=== PATIENT | male | born 1960 | race African-American/Black ===

== ENCOUNTER 2016-08-08 16:57 | Emergency (ER) | payer MEDICARE, MEDICAID ==
[~2016-08-08] VITALS: Ht 162.6 cm; Wt 63.6 kg
[~2016-08-08 16:57] MED LIST: HYDR-4003 PO; PENI500T PO
[2016-08-08 17:16] VITALS: BP 123/81; PULSE 103; RESP 20; O2SAT 97
[2016-08-08] MEDS ORDERED: TRAZ-115 PO (17:23)
[2016-08-08] MEDS ORDERED: HYDR-656 PO (17:23)
[2016-08-08] MEDS ORDERED: CRB200T PO (17:23)
--- NOTE | 2016-08-08 19:49 | DRSVH ---
PROCEDURE: X-RAY CHEST, TWO VIEWS ([id number]) INDICATIONS: cough, shortness of breath TECHNIQUE: 2 views of the chest were acquired. COMPARISON: None. FINDINGS: Surgical changes and devices: None. Lungs and pleura: No pleural effusions or pneumothorax. Lungs are clear. Mediastinum: Mediastinal contours are normal. Heart size is normal. Bones and chest wall: No suspicious bony abnormalities. Soft tissues appear unremarkable. IMPRESSION: No acute cardiopulmonary findings. Dictated by: Ele Celis M.D. on 08/08/2016 at 19:47 Approved by: Ele Celis M.D. on 08/08/2016 at 19:47
--- NOTE | 2016-08-08 20:14 | ED.REPORT ---
HPI-General Illness Date of Service Aug 08, 2016 ED Provider: Thony Reeves MD A 56 year old male with a history of hypertension and heroin use presents to the ED with a productive cough onset 2-3 days ago. He also reports a subjective fever, generalized myalgias, weakness, and diaphoresis. The patient was seen three days ago in clinic for alcohol withdrawal and admits to drinking alcohol earlier today. Nursing Notes Stated Complaint: COLD SYMPTOMS Chief Complaint: FLU/Cold Symptoms Nursing Notes Reviewed: Yes Allergies: Coded Allergies: morphine (Verified Allergy, Unknown, rash, 05/12/16) Scheduled Carbamazepine (Carbamazepine) 200 Mg Tablet 200 MG PO TID Trazodone (Trazodone) 50 Mg Tablet 50-100 MG PO HS hydrOXYzine Hcl (HydrOXYzine Hcl) 25 Mg Tablet 25-50 MG PO TID Scheduled PRN Ibuprofen (Ibuprofen) 600 Mg Tablet 600 MG PO QID PRN PRN For Pain General Time Seen by MD: 20:13 Chief Complaint Cough Hx Obtained From: Patient Arrived By: Walk-in Sudden in Onset?: No Onset Occurred: 3 days ago Symptom Duration: Since onset Severity: Current: No pain currently Severity: Maximum: No pain Associated with: Reports: Diaphoresis, Fever, Weakness Pertinent Negative: Relieved by nothing Recent Healthcare: Recent doctor visit Past Medical History Past Medical History Hypertension Past Surgical History Carpal tunnel surgery Smoking History Unknown if Ever Smoker Social History Hx Heroin use Ambulatory Status Independent Review of Systems + productive cough Full Review of Systems Constitutional: Reports: Fever (Subjective), Weakness - generalized Musculoskeletal: Reports: Myalgia (Generalized) Skin: Reports Diaphoresis Complete sys rev & neg: except as marked. Physical Exam Vital Signs Vital Signs Date Time Temp Pulse Resp B/P Pulse Ox O2 Delivery O2 Flow Rate FiO2 08/08/16 20:53 36.3 92 18 122/85 97 Room Air 08/08/16 17:16 36.7 103 20 123/81 97 Room Air Initial VS: Reviewed Head / Eyes: Atraumatic, Normocephalic ENT: Conjunctiva normal, No scleral icterus Neurologic: Alert, Oriented Psychiatric: Mood/affect normal, Behavior normal, Normal thought content General/Constitutional: Awake, Alert Neck: Supple, No adenopathy Respiratory / Chest: Breath sounds NL, Breath sounds = bilat, No respiratory distress Cardiovascular: Heart rate NL, Regular rhythm, Heart sounds NL, No gallop, No murmurs, No rubs Color / Condition: Positive: Diaphoresis present Interpretation & Diagnostics Interpretation & Diagnostics: Negative for Influenza X-Ray Chest Interpretation Chest Xray Interpretation: IMPRESSION: No acute cardiopulmonary findings. Dictated by: Ele Celis M.D. on 08/08/2016 at 19:47 View: AP & lat Interpretation / Wet Read by: Interpret - Radiologist Re-Eval/Medical Decision Time of Eval: 20:20 Patient Status: Condition improved Re-Evaluation/Progress Note: Discussed with patient lab results, diagnosis, and plan for discharge. Follow-up and return to the ER instructions given. Patient agrees with plan for care and all questions were addressed. Counseled Regarding: Diagnosis, Lab results, Need for follow-up, When/why to return to ED Discharge & Departure Primary Impression: Viral respiratory illness Disposition: Home Discharge Condition All VS Reviewed: Yes Condition: Stable Patient Instructions: Fever in Adults (ED) Additional Instructions: Emergency Department evaluation included interview, examination influenza screen and chest x-ray. Influenza screen is negative chest x-ray does not show a pneumonia examination is reassuring. Rest and get adequate fluids. Use ibuprofen 600 mg every 6 hours as needed for fevers and aches. Do not use alcohol. Stay home until you are well and without a fever. Return to emergency department for increasing shortness of breath uncontrolled vomiting. Follow up with [facility], call for an appointment about one week Referrals: [facility] Scribe Attestation Portions of this note were transcribed by Taina Shirley. I, Dr. Reeves, personally performed the history, physical exam, and medical decision-making; I reviewed and confirmed the accuracy of the information in the transcribed note. Signed by: Camille Davis, 08/08/2016, 21:19 copies to: [facility] Thony Reeves MD Aug 08, 2016 20:14 TAINA SHIRLEY Aug 08, 2016 20:21
[2016-08-08] MEDS ORDERED: IBUP-1827 PO (20:28)
[2016-08-08 20:53] VITALS: BP 122/85; PULSE 92; RESP 18; O2SAT 97
== END 2016-08-08 20:54 | disposition home or self-care (01) ==
LOC: EDSEX → SED 16:57
DX: J06.9 Acute upper respiratory infection, unspecified (principal); I10 Essential (primary) hypertension; F10.20 Alcohol dependence, uncomplicated; Z87.898 Personal history of other specified conditions

== ENCOUNTER 2016-12-23 18:57 | Emergency (ER) | payer MEDICARE, MEDICAID ==
[~2016-12-23] VITALS: Ht 167.6 cm; Wt 75.0 kg
[~2016-12-23 18:57] MED LIST changes: +CRB200T PO; -HYDR-4003 PO; +HYDR-656 PO; +IBUP-1827 PO; -PENI500T PO; +TRAZ-115 PO
[2016-12-23 19:05] VITALS: BP 144/89; PULSE 114; RESP 16; O2SAT 96
--- NOTE | 2016-12-23 19:13 | ED.REPORT ---
HPI-Extremity Problem Lower Date of Service Dec 23, 2016 ED Provider: Thony Reeves Patient is a 56 year old male with a hx of HTN who presents to the ED s/p falling through a roof with his R leg up to his thigh yesterday. Today he presents with increased R knee pain and swelling. He is unable to bear weight on his R leg. He denies numbness, weakness, or any other symptoms. He does not take daily medications. This was a non-occupational injury. Nursing Notes Stated Complaint: RIGHT KNEE INJURY Chief Complaint: Extremity Trauma Nursing Notes Reviewed: Yes Allergies: Coded Allergies: morphine (Verified Allergy, Unknown, rash, 05/12/16) Scheduled Carbamazepine (Carbamazepine) 200 Mg Tablet 200 MG PO TID Trazodone (Trazodone) 50 Mg Tablet 50-100 MG PO HS hydrOXYzine Hcl (HydrOXYzine Hcl) 25 Mg Tablet 25-50 MG PO TID Scheduled PRN Ibuprofen (Ibuprofen) 600 Mg Tablet 600 MG PO QID PRN PRN For Pain Ibuprofen (Ibuprofen) 600 Mg Tablet 600 MG PO TID PRN PRN For Pain General Time Seen by MD: 19:13 Chief Complaint Knee injury right Hx Obtained From: Patient Arrived By: Walk-in Onset Occurred: Yesterday Symptom Duration: Since onset Past Medical History Past Medical History Hypertension Past Surgical History Carpal tunnel surgery bilat knees bilat shoulders Smoking History Unknown if Ever Smoker Social History Hx Heroin use Daily alcohol use Ambulatory Status Independent Review of Systems Musculoskeletal: Reports: Joint pain, Joint swelling Neurologic: Reports: Problem walking, Denies: Numbness, Weakness Complete sys rev & neg: except as marked. Physical Exam Initial Vital Signs Vital Signs (First) Date Time Temp Pulse Resp B/P Pulse Ox O2 Delivery O2 Flow Rate FiO2 12/23/16 19:05 37.1 114 16 144/89 96 Room Air Initial VS: Reviewed General/Constitutional: Well-developed, Well-nourished Head / Eyes: Atraumatic, Normocephalic Neck: Full range of motion Respiratory: No respiratory distress Cardiovascular: Intact distal pulses Abdomen / GI: Soft, Non-tender Skin: Warm, Dry Neurologic: Alert, Oriented, Nonfocal Psychiatric: Mood/affect normal, Behavior normal, Normal thought content Right Knee: Positive: Tenderness present... abrasion, swelling, and bruising anterior medial of R knee no palpable effusion able extend knee fully flexes to 100 degrees distal pulses intact no ligament laxity pain with valgus stress any movement elicits a great deal of grimacing Ankle / Foot: Atraumatic, Inspection NL Interpretation & Diagnostics X-Ray Interpretation Xray Interpretation: IMPRESSION: Mild medial compartment osteoarthritis, superior quadriceps tendon insertion calcific tendinitis. No definite acute disease. Dictated by: Jaron Son M.D. on 12/23/2016 at 19:55 Approved by: Jaron Son M.D. on 12/23/2016 at 19:56 Study Performed: 3 view X-Ray Ordered: Knee right Interpretation / Wet Read by: Interpret - Radiologist Re-Eval/Medical Decision Re-Evaluation/Progress : Time of Eval: 20:57 Re-Evaluation/Progress Note: Discussed plan for discharge. Patient understands and agrees with plan. All questions addressed at this time. Counseled Regarding: Diagnosis, Need for follow-up, When/why to return to ED Discharge & Departure Impression: Primary Impression: Right knee pain Chronicity: acute Qualified Code: M25.561 - Pain in right knee Disposition: Home Discharge Condition All VS Reviewed: Yes Condition: Stable Patient Instructions: Crutch Instructions (ED) Additional Instructions: Evaluation tonight included interview, examination and x-ray. No major injury to the right knee is identified. Using a knee immobilizer and crutches, when able to walk comfortably without crutches he may do so. Apply ice to the knee, remove after 15-20 minutes, keep ice wrapped in a towel, you can do this 4-5 times a day. Follow-up with orthopedics call to make an appointment, ibuprofen 600 mg 3-4 times a day take with food. May use hydrocodone one every 4-6 hours as needed for pain not relieved by ibuprofen. Return emergency Department for severe swelling or severe pain in leg. Referrals: [facility] (PCP) Fly Santos MD Scribe Attestation Portions of this note were transcribed by Eduin Gomez. I, Dr. Reeves personally performed the history, physical exam and medical decision-making; I reviewed and confirmed the accuracy of the information in the transcribed note. Signed by: Eduin Gomez 12/23/16, [id number] copies to: Fly Santos MD, Donald L MD Dec 23, 2016 19:13 EDUIN GOMEZ Dec 23, 2016 20:07
--- NOTE | 2016-12-23 19:58 | DRSVH ---
PROCEDURE: X-RAY RIGHT KNEE, THREE VIEWS ([id number]) INDICATIONS: inj TECHNIQUE: 3 views of the knee were acquired. COMPARISON: None. FINDINGS: Bones: No fractures or dislocations. No suspicious bony lesions. Mild medial compartment joint spa ce narrowing is present. On the lateral view there is a quadriceps tendon insertions spurring at the upper border of the patella. Soft tissues: No joint effusion. No suspicious soft tissue calcifications. IMPRESSION: Mild medial compartment osteoarthritis, superior quadriceps tendon insertion calcific te ndinitis. No definite acute disease. Dictated by: Jaron Son M.D. on 12/23/2016 at 19:55 Approved by: Jaron Son M.D. on 12/23/2016 at 19:56
[2016-12-23] MEDS ORDERED: _HYDROcodone/APAP 5-325 mg Tablet PO PRN (21:00)
[2016-12-23 21:16] VITALS: BP 120/81; PULSE 83; RESP 16; O2SAT 98
[2016-12-23] MEDS ORDERED: IBUP-1827 PO (21:18)
== END 2016-12-23 21:57 | disposition home or self-care (01) ==
LOC: SED 18:57 → EDSEX 18:57 → SED 21:57
DX: S80.211A Abrasion, right knee, initial encounter (principal); W13.2XXA Fall from, out of or through roof, initial encounter; Y93.89 Activity, other specified; Y92.89 Other specified places as the place of occurrence of the external cause; Y99.8 Other external cause status; I10 Essential (primary) hypertension; Z88.5 Allergy status to narcotic agent

== ENCOUNTER 2017-01-31 20:20 | Emergency (ER) | payer MEDICARE, MEDICAID ==
[~2017-01-31] VITALS: Ht 162.6 cm; Wt 68.2 kg
[2017-01-31 20:21] VITALS: BP 146/95; PULSE 95; RESP 20; O2SAT 98
--- NOTE | 2017-01-31 22:45 | ED.REPORT ---
HPI-General Illness Date of Service Jan 31, 2017 ED Provider: Pedro Che DO Pt is a 56 year old male with a history of HTN and alcohol withdrawal seizures who presents to the ED for a medical evaluation before going into detox. 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 He last used 17 :00 today, and has been using for 5 years. The pt states that [facility] and they wanted to him to present to the ED first for a medical evaluation. Nursing Notes Stated Complaint: DETOX Chief Complaint: Substance Abuse Nursing Notes Reviewed: Yes Allergies: Coded Allergies: morphine (Verified Allergy, Unknown, rash, 05/12/16) Scheduled Carbamazepine (Carbamazepine) 200 Mg Tablet 200 MG PO TID Trazodone (Trazodone) 50 Mg Tablet 50-100 MG PO HS hydrOXYzine Hcl (HydrOXYzine Hcl) 25 Mg Tablet 25-50 MG PO TID Scheduled PRN Ibuprofen (Ibuprofen) 600 Mg Tablet 600 MG PO QID PRN PRN For Pain Ibuprofen (Ibuprofen) 600 Mg Tablet 600 MG PO TID PRN PRN For Pain General Time Seen by MD: 22:45 Chief Complaint Other (Detox) Hx Obtained From: Patient Arrived By: Walk-in Sudden in Onset?: No Onset Occurred: Just prior to arrival Symptom Duration: Since onset Severity: Current: No pain currently Severity: Maximum: No pain Recent Healthcare: No recent doctor visit, No recent hospitalization Similar Sx Previous: No Past Medical History Past Medical History Borderline DM Reports: Hypertension Past Surgical History Carpal tunnel surgery bilat knees bilat shoulders Smoking History Unknown if Ever Smoker Social History Hx Heroin use Alcohol Use: >5 per day Drug Use: Meth Ambulatory Status Independent Review of Systems Asymptomatic Full Review of Systems Constitutional: Denies: Fever Respiratory: Denies: Non-productive cough, Shortness of breath Complete sys rev & neg: except as marked. Physical Exam Vital Signs Vital Signs Date Time Temp Pulse Resp B/P Pulse Ox O2 Delivery O2 Flow Rate FiO2 01/31/17 20:21 36.9 95 20 146/95 98 Room Air Initial VS: Reviewed Head / Eyes: Atraumatic, Normocephalic Neck: Supple, Full range of motion Respiratory: Breath sounds normal, Clear to auscultation, No respiratory distress Cardiovascular: Regular rate & rhythm, Heart sounds normal, Intact distal pulses Abdomen / GI: Soft, Non-tender Extremities: Vascular intact, Neuro intact Skin: Warm, Dry, No cyanosis Neurologic: Alert, Oriented, Nonfocal Psychiatric: Mood/affect normal, Behavior normal General/Constitutional: Awake, Alert, Cooperative Mildly pressured speech. Interpretation & Diagnostics Lab Results Interpretation Result Diagram: 01/31/17 2333 01/31/17 2333 Test 01/31/17 23:33 01/31/17 23:37 01/31/17 23:44 White Blood Count 7.7th/mm3 (3.8-10.1) Red Blood Count 4.96mil/mm3 (4.40-5.80) Hemoglobin 13.6g/dL (13.8-17.2) Hematocrit 40.1% (41.0-50.0) Mean Corpuscular Volume 80.8fL (81-100) Mean Corpuscular Hemoglobin 27.4pg (27.0-35.0) Mean Corpuscular Hemoglobin Concent 33.9% (32.0-37.0) Red Cell Distribution Width 13.2% (12.3-15.4) Platelet Count 276bil/L (150-400) Neutrophils (%) (Auto) 56.5% (40-74) Lymphocytes (%) (Auto) 29.3% (14-46) Monocytes (%) (Auto) 9.6% (4-12) Eosinophils (%) (Auto) 4.0% (0-5) Basophils (%) (Auto) 0.5% (0-3) Sodium Level 140mEq/L (134-144) Potassium Level 4.8mEq/L (3.5-5.2) Chloride Level 100mEq/L (97-108) Carbon Dioxide Level 27mmol/L (18-29) Blood Urea Nitrogen 12mg/dL (6-24) Creatinine 0.96mg/dL (0.76-1.27) Estimat Glomerular Filtration Rate 86mL/min (>59) Glucose Level 95mg/dL (60-99) Calcium Level 9.7mg/dL (8.5-10.1) Total Bilirubin 0.3mg/dL (0.0-1.2) Aspartate Amino Transf (AST/SGOT) 30U/L (0-50) Alanine Aminotransferase (ALT/SGPT) 20U/L (0-44) Alkaline Phosphatase 68U/L (25-150) Total Protein 8.0g/dL (6.4-8.4) Albumin 4.8g/dL (3.4-5.0) Alcohols < 10mg/dL (0-10) Hold Cordero Top Tube Received (Received) Hold Urine Received (Received) Re-Eval/Medical Decision Med Decision/Clinical Course No signs of active DTs. No tremor. No hallucinations. [id number] anxiety which was treated with lorazepam. Laboratory work reassuring. No suicidal ideations. Cleared for sobering services treatment. Lorazepam taper provided. Recommend close outpatient follow-up. Routine sedative warnings given. Source of Hx: Old records Time of Eval: 01:27 Re-Evaluation/Progress Note: Pt rechecked. Informed pt of plan for discharge. Pt understands and agrees with plan for discharge. F/U instructions and RTER warnings given. All questions addressed. Counseled Regarding: Diagnosis, Lab results, Need for follow-up, When/why to return to ED Discharge & Departure Primary Impression: Substance abuse Additional Impression: Alcohol abuse Disposition: Home Discharge Condition All VS Reviewed: Yes Condition: Stable Patient Instructions: Abuse of Alcohol (ED) Additional Instructions: Proceed to sobering services. Do not abuse methamphetamine or alcohol. Complete the Ativan as instructed and provided. Do not drive or consume acetaminophen or sedatives while taking the medication. Attend alcohol anonymous once you are discharged from sobering services. Follow up with your primary provider after you are discharged from sobering services. Return to the Emergency Department for any new or worsening symptoms. [facility] Camille Attestation Portions of this note were transcribed by Janell Antunez. I, Dr. Che personally performed the history, physical exam and medical decision-making; I reviewed and confirmed the accuracy of the information in the transcribed note. Signed by : Camille Plata, 01/31/17 and 23:40. copies to: [facility] Todd P DO Jan 31, 2017 22:45 Janell Kirkpatrick Jan 31, 2017 23:20
[2017-01-31] MEDS ORDERED: _LORazepam 2 MG Tablet PO SCH (23:20)
[2017-01-31] MEDS ORDERED: LORazepam 2 mg Tablet PO ONE (23:20)
[2017-01-31 23:50] LABS: BASOPHILS % (AUTO) 0.5 % (0-3); MONOCYTES % (AUTO) 9.6 % (4-12); Mean Corpuscular Hemoglobin 27.4 pg (27.0-35.0); Mean Corpuscular Volume 80.8 fL (81-100); NEUTROPHILS % (AUTO) 56.5 % (40-74); Platelet Count 276 bil/L (150-400)
[2017-02-01] MEDS ORDERED: _LORazepam 2 MG Tablet PO SCH (00:30)
[2017-02-01] MEDS ORDERED: LORazepam 2 mg Tablet PO ONE (00:30)
== END 2017-02-01 02:17 | disposition home or self-care (01) ==
LOC: SED 20:20
DX: F15.129 Other stimulant abuse with intoxication, unspecified (principal); F10.10 Alcohol abuse, uncomplicated; I10 Essential (primary) hypertension; R73.03 Prediabetes; Z88.5 Allergy status to narcotic agent
CPT/HCPCS: 36415; 80053; 81002; 82075; 85025; 99284; G0480

== ENCOUNTER 2017-02-20 17:51 | Emergency (ER) | payer MEDICARE, MEDICAID ==
[~2017-02-20] VITALS: Ht 162.6 cm; Wt 68.2 kg
[2017-02-20 17:57] VITALS: BP 126/87; PULSE 97; RESP 12; O2SAT 98
[2017-02-20] MEDS ORDERED: Ondansetron 2 mg/mL 2 mL Inj IVPUSH ONE (18:50)
--- NOTE | 2017-02-20 18:51 | ED.REPORT ---
HPI-Abd Pain M 40 and Over Date of Service Feb 20, 2017 ED Provider: Syed Dudley MD The pt is a 56 y/o male w/ a hx of HTN and pancreatitis presenting to the ED complaining of abdominal pain onset 2 days ago. The pain is in the upper abdomen , radiates to the back, is described as sharp and achy and keeps him awake during the night, eating and drinking make it worse, staying still makes it better, and he drank alcohol the night before it started. The pt also reports dizziness, and vomiting everything he eats and drinks w/ the vomit being a dark brown color. Denies fever, dysuria, or abdominal surgery. The pt was hospitalized for pancreatitis 4 years ago caused by alcohol and a poor diet and his symptoms were similar to what he has been experiencing today. The pt admits to drinking alcohol daily. He was last seen here in the ED 3 weeks ago for substance abuse. Nursing Notes Stated Complaint: VOMITING,STOMACH HURTS,POSS PANCREAS Chief Complaint: Male Abdominal Pain Nursing Notes Reviewed: Yes ([employer], [employer] not reconciled) Allergies: Coded Allergies: morphine (Verified Allergy, Unknown, rash, 05/12/16) Scheduled Carbamazepine (Carbamazepine) 200 Mg Tablet 200 MG PO TID Trazodone (Trazodone) 50 Mg Tablet 50-100 MG PO HS hydrOXYzine Hcl (HydrOXYzine Hcl) 25 Mg Tablet 25-50 MG PO TID Scheduled PRN Ibuprofen (Ibuprofen) 600 Mg Tablet 600 MG PO QID PRN PRN For Pain Ibuprofen (Ibuprofen) 600 Mg Tablet 600 MG PO TID PRN PRN For Pain Ondansetron ODT (Ondansetron ODT) 8 Mg Tab.rapdis 8 MG PO Q4H PRN PRN For Nausea oxyCODONE-Acetaminophen 5-325 mg (oxyCODONE-Acetaminophen 5-325 mg) 1 Each Tablet 1-2 TAB PO Q6H PRN PRN For Pain General Time Seen by MD: 18:50 Chief Complaint Abdominal pain Hx Obtained From: Patient Sudden in Onset?: Yes Onset Occurred: 2 days ago Context of Onset: New medication Recent Healthcare: No recent hospitalization, Recent doctor visit Similar Sx Previous: Yes Past Medical History Past Medical History Borderline DM Pancreatitis Reports: Hypertension Past Surgical History Carpal tunnel surgery bilat knees bilat shoulders Smoking History Unknown if Ever Smoker Social History Hx Heroin use Alcohol Use: >5 per day Drug Use: Meth Ambulatory Status Independent Review of Systems Constitutional: Denies: Fever GI: Reports: Abdominal pain, Nausea, Vomiting Male: Denies Dysuria Complete sys rev & neg: except as marked. Neurologic: Reports: Dizziness Physical Exam Initial Vital Signs Vital Signs (First) Date Time Temp Pulse Resp B/P Pulse Ox O2 Delivery O2 Flow Rate FiO2 02/20/17 17:57 36.9 97 12 126/87 98 Room Air Initial VS: Reviewed, Vital signs normal Head / Eyes: Atraumatic, Normocephalic, PERRL ENT: Mucous membranes moist, Conjunctiva normal, No scleral icterus Neck: Supple, Non-tender, Full range of motion Extremities: Vascular intact, Neuro intact, No swelling, No tenderness Skin: Warm, Dry, No cyanosis Neurologic: Alert, Oriented, Nonfocal Psychiatric: Mood/affect normal, Behavior normal, Normal thought content General/Constitutional: Awake, Alert, Not toxic appearing Appearance / Presentation: Positive: Uncomfortable No signs of intoxication or withdrawal Respiratory / Chest: Atraumatic, Breath sounds NL, Breath sounds = bilat Cardiovascular: Heart rate NL, Regular rhythm, Heart sounds NL Abdomen: Soft, No guarding, No rebound Tenderness/Guarding/Rebound: Positive: Tender epigastric (Trace) Back: Atraumatic, Inspection NL, Full range of motion Interpretation & Diagnostics Lab Results Interpretation Result Diagram: 02/20/17 1904 02/20/17 1904 Test 02/20/17 19:04 02/20/17 19:11 White Blood Count 7.3th/mm3 (3.8-10.1) Red Blood Count 5.19mil/mm3 (4.40-5.80) Hemoglobin 14.8g/dL (13.8-17.2) Hematocrit 41.8% (41.0-50.0) Mean Corpuscular Volume 80.5fL (81-100) Mean Corpuscular Hemoglobin 27.4pg (27.0-35.0) Mean Corpuscular Hemoglobin Concent 34.0% (32.0-37.0) Red Cell Distribution Width 13.3% (12.3-15.4) Platelet Count 253bil/L (150-400) Neutrophils (%) (Auto) 67.2% (40-74) Lymphocytes (%) (Auto) 22.1% (14-46) Monocytes (%) (Auto) 7.4% (4-12) Eosinophils (%) (Auto) 2.5% (0-5) Basophils (%) (Auto) 0.4% (0-3) Sodium Level 137mEq/L (134-144) Potassium Level 3.9mEq/L (3.5-5.2) Chloride Level 98mEq/L (97-108) Carbon Dioxide Level 22mmol/L (18-29) Blood Urea Nitrogen 11mg/dL (6-24) Creatinine 1.12mg/dL (0.76-1.27) Estimat Glomerular Filtration Rate 72mL/min (>59) Glucose Level 103mg/dL (60-99) Calcium Level 9.3mg/dL (8.5-10.1) Magnesium Level 2.3mg/dL (1.6-2.6) Total Bilirubin 0.3mg/dL (0.0-1.2) Aspartate Amino Transf (AST/SGOT) 27U/L (0-50) Alanine Aminotransferase (ALT/SGPT) 39U/L (0-44) Alkaline Phosphatase 65U/L (25-150) Troponin T < 0.010ug/L (0.0-0.011) Total Protein 8.0g/dL (6.4-8.4) Albumin 4.6g/dL (3.4-5.0) Lipase 28U/L (13-60) Alcohols < 10mg/dL (0-10) Urine Color Yellow (YELLOW) Urine Appearance Clear (CLEAR,HAZY) Urine pH 5.0 (5.0-8.0) Urine Specific [place] 1.025 (1.003-1.035) Urine Protein Negativemg/dL (NEG,TRACE) Urine Glucose (UA) Negativemg/dL (NEGATIVE) Urine Ketones Negativemg/dL (NEGATIVE) Urine Occult Blood Trace (NEGATIVE) Urine Nitrite Negative (NEGATIVE) Urine Bilirubin Negative (NEGATIVE) Urine Urobilinogen Normalmg/dL (NORMAL) Urine Leukocyte Esterase Negative (NEGATIVE) Urine RBC 0-2/hpf (0-2) Urine WBC 0-5/hpf (0-5) Urine Epithelial Cells Occasional/hpf (NONE-MOD) Urine Crystals None seen (NONE SEEN) Urine Bacteria Few/hpf (NONE-FEW) Urine Hyaline Casts None/lpf (NONE) Urine Granular Casts None seen (NONE SEEN) Urine Waxy Casts None seen (NONE SEEN) Urine Red Blood Cell Casts None seen (NONE SEEN) Urine White Blood Cell Casts None seen (NONE SEEN) Urine Mucus Present (None Seen) Urine Trichomonas None seen (NONE SEEN) Urine Yeast None (NONE SEEN) Urinalysis Comment None Urine Culture Reflexed Not indicated Lab Results Interpretation: CBC normal CMP Normal ETOH negative Lipase normal ECG Interpretation ECG Interpretation: Rate 91 NSR Time: 19:59 Interpreted by: ED physician CT Abd / Pelvis Interpretation IMPRESSION: Chronic pancreatic changes consistent with pancreatitis. Acute changes are not preciated but this would not rule out an acute pancreatitis. No other abnormality is appreciated on the CT scan of the abdomen and pelvis with contrast. Dictated by: José Manuel Hendricks M.D. on 02/20/2017 at 20:36 Approved by: José Manuel Hendricks M.D. on 02/20/2017 at 20:42 Study type: Abdom CT oral contrast Interpretation / Wet Read by: Interpret - Radiologist Re-Eval/Medical Decision Med Decision/Clinical Course This is a 56-year-old male with a history prior alcohol abuse developed pancreatitis as a result, has been sober for a number years. He recently is the father of twins, and reports had some alcohol a few days ago and a small amount and has now developed epigastric pain radiating the back that is and what he had with pancreatitis in the past. He has had some nausea, persistence of pain came to the department. He has normal vitals, is mildly uncomfortable, but has a benign clinical exam. Labs are normal. Given his history CT imaging was obtained and reveals chronic inflammatory changes of pancreatitis, but no definitive acute, although his history and exam strongly argue for us an acute flare. The patient is treated with some Dilaudid and Zofran is improved, and I think managed as an outpatient. He discharged some ondansetron and Percocet. Routine precautions reviewed. Precautions reviewed. Patient's discharged in improved condition Source of Hx: Old records Time of Eval: 21:33 Re-Evaluation/Progress Note: Pt rechecked. Informed pt of plan for treatment. Pt understands and agrees with plan for treatment. F/U instructions and RTER warnings given. All questions addressed. Differential Diagnosis: Positive: Acute abdominal pain, Negative: Aortic dissection, C. diff colitis, Esophageal rupture, Gun shot wound abdomen, Stab wound abdomen, Unstable angina, Urinary obstruction Counseled Regarding: Diagnosis, Lab results, Need for follow-up, When/why to return to ED Discharge & Departure Primary Impression: Pancreatitis Chronicity: chronic Pancreatitis type: alcohol induced Qualified Code: K86.0 - Alcohol-induced chronic pancreatitis Additional Impression: Epigastric pain Disposition: Home Vital Signs - All Vital Signs Date Time Temp Pulse Resp B/P Pulse Ox O2 Delivery O2 Flow Rate FiO2 02/20/17 22:36 37.0 78 14 128/66 98 Room Air 02/20/17 20:47 77 14 144/84 98 Room Air 02/20/17 17:57 36.9 97 12 126/87 98 Room Air )( All Prior VS Reviewed: Yes Condition: Stable Additional Instructions: 1. Your symptoms and exam suggest you may have a mild exacerbation of chronic pancreatitis - likely caused by alcohol. 2. Your blood tests and CT Scan did not reveal acute pancreatitis - but there are findings of chronic pancreatitis and the small amount of alcohol you had recently can precipitate this pain. 3. Symptoms are expected to resolve with time over the next several days. 4. Stay away from any further alcohol. (Even small amounts can cause an exacerbation). 5. Light diet as tolerated. 6. Take oxycodone/APAP 5mg 1-2 tabs up to three times a day for pain. NOTE: This medication contains a narcotic and causes drowsiness. NO driving for at least 4 hours after taking. 7. If needed for nausea take ondansetron 8mg - let dissolve underneath tongue - up to every 4 hours as needed for nausea. 8. Return to the ED if new, worsening, or uncontrolled symptoms. Referrals: [facility] (PCP) Scribe Attestation Portions of this note were transcribed by Roland Wilson. I, Dr. Dudley personally performed the history, physical exam and medical decision-making; I reviewed and confirmed the accuracy of the information in the transcribed note. copies to: [facility] Matthew F MD Feb 20, 2017 18:51 Roland Wilson Feb 20, 2017 20:40
[2017-02-20] MEDS: HYDROmorphone 0.5 mg/0.5 mL iSecure Syringe IVPUSH PRN ×2 (18:59→19:28)
[2017-02-20] MEDS ORDERED: 0.9% Sodium Chloride 1,000 ML IV ONE (19:15)
[2017-02-20 19:16] LABS: Mean Corpuscular Hemoglobin 27.4 pg (27.0-35.0); Mean Corpuscular Volume 80.5 fL (81-100)
[2017-02-20 19:17] LABS: BASOPHILS % (AUTO) 0.4 % (0-3); EOSINOPHILS % (AUTO) 2.5 % (0-5); MONOCYTES % (AUTO) 7.4 % (4-12); NEUTROPHILS % (AUTO) 67.2 % (40-74); Platelet Count 253 bil/L (150-400)
[2017-02-20 19:26] LABS: Magnesium 2.3 mg/dL (1.6-2.6)
[2017-02-20 19:30] LABS: APPEARANCE,URINE CLEAR (CLEAR,HAZY); COLOR,URINE YELLOW (YELLOW); OCCULT BLOOD,URINE TRACE (NEGATIVE); UROBILINOGEN,URINE NORMAL (NORMAL)
--- NOTE | 2017-02-20 20:45 | DRSVH ---
PROCEDURE: CT ABDOMEN AND PELVIS WITH CONTRAST ([id number]) INDICATIONS: abd pain ?pancreatitis TECHNIQUE: After the administration of intravenous contrast, 5 mm thick sections acquired from the diaphragm to the symphysis. 5 mm coronal and sagittal reformats were acquired. For radiation dose reduction, the following was used: automated exposure control, adjustment of mA and/or kV according to patient siz e. COMPARISON: None. FINDINGS: Image quality: Good. ABDOMEN: Lung bases: Lung bases are clear. Heart size is normal. Solid organs: Liver and spleen are normal in size and enhancement. Gallbladder is within normal [place] its. Common bile duct is considered normal.. Biliary system is non dilated. Pancreatic duct is enla rged up to 7 or 8 mm in the body. There is scattered numerous calcifications in the tail of the pancr eas. I do not appreciate any stranding or fluid collections around the pancreas. No adrenal nodules. Kidneys demonstrate normal size and enhancement, without hydronephrosis. Peritoneum and bowel: Bowel loops demonstrate normal wall thickness and caliber. No free fluid or a ir. The appendix is normal Nodes and vessels: No retroperitoneal or mesenteric adenopathy by size criteria. Aorta and inferior vena cava are normal in size. Miscellaneous: No ventral hernias. PELVIS: Genitourinary: Bladder wall thickness is probably mildly and diffusely thickened.. Prostate is moder ately enlarged Miscellaneous: No adenopathy. There is a small fatty left inguinal hernia. Bones: No suspicious bony lesions. No vertebral body compression fractures. IMPRESSION: Chronic pancreatic changes consistent with pancreatitis. Acute changes are not preciated but this would not rule out an acute pancreatitis. No other abnormality is appreciated on the CT scan of the abdomen and pelvis with contrast. Dictated by: José Manuel Hendricks M.D. on 02/20/2017 at 20:36 Approved by: José Manuel Hendricks M.D. on 02/20/2017 at 20:42
[2017-02-20 20:47] VITALS: BP 144/84; PULSE 77; RESP 14; O2SAT 98
[2017-02-20] MEDS ORDERED: _oxyCODONE/APAP 5-325 mg Tablet PO PRN (21:35)
[2017-02-20] MEDS ORDERED: _Ondansetron ODT 4 mg Tablet PO PRN (21:35)
[2017-02-20] MEDS ORDERED: HYDROmorphone 1 mg/mL Inj IVPUSH ONE (21:35)
[2017-02-20] MEDS ORDERED: ONDA8TAB10 PO (22:15)
[2017-02-20] MEDS ORDERED: OXYC1TAB24 PO (22:15)
[2017-02-20 22:36] VITALS: BP 128/66; PULSE 78; RESP 14; O2SAT 98
== END 2017-02-20 22:37 | disposition home or self-care (01) ==
LOC: SED 17:51
DX: K86.0 Alcohol-induced chronic pancreatitis (principal); R10.13 Epigastric pain; I10 Essential (primary) hypertension; Z88.5 Allergy status to narcotic agent
CPT/HCPCS: 36415; 74177; 80053; 81000; 81002; 83690; 83735; 84484; 85025; 93005; 96361; 96374; 96375; 96376; 99285; G0480; J1170; J2405; J7030; Q9967

== ENCOUNTER 2017-02-21 16:20 | Emergency (ER) | payer MEDICARE, MEDICAID ==
[~2017-02-21] VITALS: Ht 162.6 cm; Wt 68.2 kg
[~2017-02-21 16:20] MED LIST changes: +ONDA8TAB10 PO; +OXYC1TAB24 PO
[2017-02-21 16:58] VITALS: BP 157/97; PULSE 93; RESP 20; O2SAT 100
[2017-02-21 18:03] LABS: BASOPHILS % (AUTO) 0.1 % (0-3); EOSINOPHILS % (AUTO) 1.7 % (0-5); MONOCYTES % (AUTO) 5.3 % (4-12); Mean Corpuscular Hemoglobin 27.1 pg (27.0-35.0); Mean Corpuscular Volume 80.3 fL (81-100); NEUTROPHILS % (AUTO) 82.9 % (40-74); Platelet Count 255 bil/L (150-400)
[2017-02-21 18:29] LABS: Magnesium 2.2 mg/dL (1.6-2.6)
[2017-02-21] MEDS ORDERED: 0.9% Sodium Chloride 1,000 ML IV SCH (18:50)
--- NOTE | 2017-02-21 19:07 | ED.REPORT ---
HPI-Abd Pain M 40 and Over Date of Service Feb 21, 2017 ED Provider: Pedro Che DO Pt is a 56 year old male with a history of pancreatitis and HTN who presents to the ED complaining of abdominal pain onset 3 days ago. He c/o associated pain radiating to his back, dizziness, and vomiting. Pt denies fever and dysuria. He reports that he last drank alcohol 4 days ago. Pt presented to the ED on 02/20/17 with his symptoms and he was diagnosed with chronic pancreatitis. He was discharged with Zofran and oxycodone, which he reports has provided no relief. Nursing Notes Stated Complaint: STOMACH PAIN Chief Complaint: Male Abdominal Pain Nursing Notes Reviewed: Yes Allergies: Coded Allergies: morphine (Verified Allergy, Unknown, rash, 02/21/17) Scheduled Carbamazepine (Carbamazepine) 200 Mg Tablet 200 MG PO TID Trazodone (Trazodone) 50 Mg Tablet 50-100 MG PO HS hydrOXYzine Hcl (HydrOXYzine Hcl) 25 Mg Tablet 25-50 MG PO TID Scheduled PRN Ibuprofen (Ibuprofen) 600 Mg Tablet 600 MG PO QID PRN PRN For Pain Ibuprofen (Ibuprofen) 600 Mg Tablet 600 MG PO TID PRN PRN For Pain Ondansetron ODT (Ondansetron ODT) 8 Mg Tab.rapdis 8 MG PO Q4H PRN PRN For Nausea oxyCODONE-Acetaminophen 5-325 mg (oxyCODONE-Acetaminophen 5-325 mg) 1 Each Tablet 1-2 TAB PO Q6H PRN PRN For Pain General Time Seen by MD: 18:46 Chief Complaint Abdominal pain Hx Obtained From: Patient Arrived By: Walk-in Sudden in Onset?: No Onset Occurred: 3 days ago Symptom Duration: Since onset Location: : Abdomen upper Quality: Painful Radiation: : Back Severity: Current: Moderate Severity: Maximum: Moderate Recent Healthcare: Recent doctor visit Similar Sx Previous: Yes Past Medical History Past Medical History Borderline DM Pancreatitis Reports: Hypertension Past Surgical History Carpal tunnel surgery bilat knees bilat shoulders Smoking History Unknown if Ever Smoker Social History Hx Heroin use Alcohol Use: >5 per day Drug Use: Meth Ambulatory Status Independent Review of Systems Constitutional: Denies: Fever GI: Reports: Abdominal pain, Vomiting Male: Denies Dysuria Musculoskeletal: Reports: Back pain Complete sys rev & neg: except as marked. Neurologic: Reports: Dizziness Physical Exam Initial Vital Signs Vital Signs (First) Date Time Temp Pulse Resp B/P Pulse Ox O2 Delivery O2 Flow Rate FiO2 02/21/17 16:58 36.6 93 20 157/97 100 Room Air Initial VS: Reviewed Head / Eyes: Atraumatic, Normocephalic Neck: Supple, Full range of motion Extremities: Vascular intact, Neuro intact Skin: Warm, Dry, No cyanosis Neurologic: Alert, Oriented, Nonfocal Psychiatric: Mood/affect normal, Behavior normal General/Constitutional: Awake, Alert Respiratory / Chest: Atraumatic, Breath sounds NL, Breath sounds = bilat Cardiovascular: Regular rhythm, Heart sounds NL Rapid heart rate Abdomen: Atraumatic, Soft Tenderness/Guarding/Rebound: Positive: Tender diffuse Back: Atraumatic, Full range of motion Interpretation & Diagnostics CT HEAD: CONCLUSION: Motion artifact. No acute intracranial abnormality identified. Transmitted to the ED at 02:20 by Ayaan Rivera M.D. Lab Results Interpretation Result Diagram: 02/21/17 1744 02/21/17 1744 Test 02/21/17 17:44 02/22/17 00:22 White Blood Count 13.2th/mm3 (3.8-10.1) Red Blood Count 5.17mil/mm3 (4.40-5.80) Hemoglobin 14.0g/dL (13.8-17.2) Hematocrit 41.5% (41.0-50.0) Mean Corpuscular Volume 80.3fL (81-100) Mean Corpuscular Hemoglobin 27.1pg (27.0-35.0) Mean Corpuscular Hemoglobin Concent 33.7% (32.0-37.0) Red Cell Distribution Width 13.4% (12.3-15.4) Platelet Count 255bil/L (150-400) Neutrophils (%) (Auto) 82.9% (40-74) Lymphocytes (%) (Auto) 9.8% (14-46) Monocytes (%) (Auto) 5.3% (4-12) Eosinophils (%) (Auto) 1.7% (0-5) Basophils (%) (Auto) 0.1% (0-3) Sodium Level 138mEq/L (134-144) Potassium Level 5.0mEq/L (3.5-5.2) Chloride Level 98mEq/L (97-108) Carbon Dioxide Level 23mmol/L (18-29) Blood Urea Nitrogen 9mg/dL (6-24) Creatinine 0.96mg/dL (0.76-1.27) Estimat Glomerular Filtration Rate 86mL/min (>59) Glucose Level 102mg/dL (60-99) Calcium Level 10.0mg/dL (8.5-10.1) Magnesium Level 2.2mg/dL (1.6-2.6) Total Bilirubin 0.4mg/dL (0.0-1.2) Aspartate Amino Transf (AST/SGOT) 28U/L (0-50) Alanine Aminotransferase (ALT/SGPT) 33U/L (0-44) Alkaline Phosphatase 62U/L (25-150) Total Protein 8.7g/dL (6.4-8.4) Albumin 4.9g/dL (3.4-5.0) Lipase 19U/L (13-60) Hold Cordero Top Tube Received (Received) Troponin T 0.010ug/L (0.0-0.011) ECG Interpretation ECG Interpretation: Sinus rhythm with a rate of 59 Time: 00:02 Interpreted by: ED physician Re-Eval/Medical Decision Med Decision/Clinical Course Very pleasant 56-year-old male with chronic pancreatitis. He was seen yesterday and worked up labs and CT scan. Oral Percocet was given without much relief. He presents now with mild diffuse abdominal pain and tenderness. No rebound. Laboratory work is reassuring. He does have a slight leukocytosis however. He was treated with aliquots of IV Dilaudid. After 1 dose of Dilaudid he developed a headache. He states he has been getting right temporal headaches before CT scan was performed. This was negative for mass, hemorrhage or stroke. The headache was not thunderclap, not maximal in onset and not associated with nuchal rigidity. Lumbar puncture felt to be unnecessary. Hospitalization was offered for the pain control. Mr. Javier declined. He wanted to try oral pain medication. He was given 10 mg of oral oxycodone. This seemed to help. He will take 5-10 mg every 6 hours. I prescribed 20 of these with the understanding that he needs to be seen by primary care this week. If he develops any fever, neck stiffness or headache returns that he needs to consider the lumbar puncture as discussed. Routine opiate warnings were given. Source of Hx: Old records Time of Eval: 22:36 Patient Status: Condition improved Re-Evaluation/Progress Note: Pt rechecked. He is feeling better and would like to go home. Informed pt of plan for discharge. Pt understands and agrees with plan for discharge. F/U instructions and RTER warnings given. All questions addressed. Time of Eval: 01:58 Re-Evaluation/Progress Note: Pt rechecked. Pt reports that he developed a headache that he states is the worst headache of his life. All questions addressed. Counseled Regarding: Diagnosis, Lab results, Need for follow-up, When/why to return to ED Discharge & Departure Primary Impression: Generalized abdominal pain Additional Impression: Chronic alcoholic pancreatitis Disposition: Home Vital Signs - All Vital Signs Date Time Temp Pulse Resp B/P Pulse Ox O2 Delivery O2 Flow Rate FiO2 02/22/17 02:35 36.7 81 20 130/73 96 Room Air 02/22/17 01:53 36.7 81 20 130/73 96 Room Air 02/22/17 01:04 65 20 117/70 98 Room Air 02/21/17 21:20 17 136/81 70 Room Air 02/21/17 16:58 36.6 93 20 157/97 100 Room Air )( All Prior VS Reviewed: Yes Condition: Stable Patient Instructions: Acute Abdominal Pain (ED), Pancreatitis (ED) Additional Instructions: It is imperative that you stop consuming alcohol completely. Your most likely suffering from another bout of her chronic pancreatitis. He will white blood cell count is elevating. This could be indicative of the inflammation. The rest of the labs are reassuring. He may take 1-2 of the oxycodone every 6 hours as needed. Do not take any other pain medications or any other sedatives. I would like you to call your doctor tomorrow to be seen this week. Return if have any problems or any new or worsening symptoms. He may take 1 Zofran every 8 hours as needed for nausea. Referrals: [facility] ([facility]) Scribe Attestation Portions of this note were transcribed by Janell Antunez. I, Dr. Che personally performed the history, physical exam and medical decision-making; I reviewed and confirmed the accuracy of the information in the transcribed note. Signed by : Camille Plata, 02/21/17. copies to: [facility] Todd P DO Feb 21, 2017 19:07 Janell Kirkpatrick Feb 21, 2017 19:36
[2017-02-21] MEDS: HYDROmorphone 0.5 mg/0.5 mL iSecure Syringe IVPUSH PRN ×4 (19:52→21:17)
[2017-02-21] MEDS: Ondansetron 2 mg/mL 2 mL Inj IVPUSH PRN ×3 (19:56→22:50)
[2017-02-21 21:20] VITALS: BP 136/81; RESP 17; O2SAT 70
[2017-02-21] MEDS ORDERED: _Ondansetron ODT 4 mg Tablet PO PRN (23:35)
[2017-02-22] MEDS: Ondansetron 2 mg/mL 2 mL Inj IVPUSH PRN (00:57)
[2017-02-22] MEDS: HYDROmorphone 0.5 mg/0.5 mL iSecure Syringe IVPUSH PRN (00:58)
[2017-02-22 01:04] VITALS: BP 117/70; PULSE 65; RESP 20; O2SAT 98
[2017-02-22 01:53] VITALS: BP_SYST 117; BP_SYST 130; BP_DIAS 70; BP_DIAS 73; PULSE 65; PULSE 81; RESP 20; O2SAT 96; O2SAT 98
[2017-02-22 02:35] VITALS: BP 130/73; PULSE 81; RESP 20; O2SAT 96
--- NOTE | 2017-02-22 07:32 | DRSVH ---
PROCEDURE: CT BRAIN WITHOUT CONTRAST ([id number]) INDICATIONS: sudden severe headache TECHNIQUE: Noncontrast 4.5 mm thick angled axial sections acquired from the foramen magnum to the vertex, with c oronal reformats. COMPARISON: None. FINDINGS: Image quality: Study is degraded by motion. CSF spaces: Basal cisterns are patent. No extra-axial fluid collections. Ventricles are normal in size and shape. Brain: No midline shift. No intracranial masses or hemorrhage. Moy-white matter interface is norm al. Skull and face: Calvarium and visualized facial bones are intact, without suspicious lesions. Sinuses: Visualized sinuses and mastoids are clear. IMPRESSION: 1. Study is degraded by patient motion. Grossly there are no large areas of acute intracranial pathol ogy. Recommend followup head CT when the patient is able. 2. There are no discrepancies with the preliminary report. Dictated by: Gray Dumont M.D. on 02/22/2017 at 7:29 Approved by: Gray Dumont M.D. on 02/22/2017 at 7:31
== END 2017-02-22 02:49 | disposition home or self-care (01) ==
LOC: SED 16:20
DX: R10.84 Generalized abdominal pain (principal); K86.0 Alcohol-induced chronic pancreatitis; I10 Essential (primary) hypertension; Z88.5 Allergy status to narcotic agent
CPT/HCPCS: 36415; 70450; 80053; 83690; 83735; 84484; 85025; 93005; 96361; 96374; 96375; 96376; 99285; J1170; J2405; J7030